=== PATIENT | female | born 1955 | race African-American/Black ===

== ENCOUNTER 2016-04-15 17:06 | Emergency (ER) | payer SELFPAY ==
[~2016-04-15] VITALS: Ht 170.2 cm; Wt 130.0 kg
[~2016-04-15 17:06] MED LIST: ALLO300T2 PO; AMLO5TAB96 PO; ASPI81TA11 PO; CORE12.5 PO; DIAZ5 PO; FURO1TAB93 PO; HYDR-2768 PO; KCL10C PO; MOTI25CH PO; PRED20 PO; RANI150 PO
[2016-04-15 17:08] VITALS: BP 144/93; PULSE 80; RESP 20; TEMP 98; O2SAT 96
== END 2016-04-15 21:05 | disposition left against medical advice (07) ==
LOC: NED 17:06
DX: Z53.21 Procedure and treatment not carried out due to patient leaving prior to being seen by health care provider (principal)
CPT/HCPCS: 99281

== ENCOUNTER 2016-08-11 20:02 | Observation (INO) | payer SELFPAY ==
[2016-08-11 20:03] VITALS: BP 141/80; PULSE 84; RESP 16; TEMP 98.6; O2SAT 97
--- NOTE | 2016-08-11 20:39 | PD ---
Physical Exam Time Seen by Provider: 20:36 Narrative 60 y/o female presents for evaluation of fluctuating blood pressure readings, dizziness, left sided chest/shoulder pain for over a week. Vital signs reviewed. Seen at triage desk. Awaiting bed placement. Data Data Last Documented VS Vital Signs Date Time Temp Pulse Resp B/P Pulse Ox O2 Delivery O2 Flow Rate FiO2 08/11/16 20:03 98.6 84 16 141/80 97 Room Air [facility] Medical Record Reviewed: Yes Supervised Visit with GILDA: Cesar Becerra August 11, 2016 20:39
[2016-08-11] MEDS ORDERED: SODIUM CHLORIDE 0.9% FLUSH 10 ML FLUSH IVF PRN (21:00)
[2016-08-11] MEDS ORDERED: ASPIRIN 81 MG CHEW TAB PO ONE (21:00)
--- NOTE | 2016-08-11 21:03 | PD ---
HPI Chief Complaint: Hypertension Time Seen by Provider: 20:51 Travel History International Travel<30 days: No Contact w/Intl Traveler<30days: No Traveled to known affect area: No History of Present Illness HPI 60-year-old female with history of hypertension, CHF, here for evaluation of elevated blood pressure and chest discomfort. The patient reports that for the last week or so she has been having elevated blood pressure readings at home with her diastolic being over 100. She is also been having a discomfort in her left chest that is been intermittent, no modifying factors. She reports history of heart murmur, however is unaware of any history of coronary artery disease. She also endorses feeling short of breath at times, currently no shortness of breath. PFSH Past Medical History Arthritis: Yes (SHOULDER AND KNEE) Asthma: Yes Blood Disorders: No Cancer: No Cardiovascular Problems: Yes (chf) High Cholesterol: Yes Congestive Heart Failure: Yes COPD: No Diabetes: Yes Diminished Hearing: No Headaches: Yes Hiatal Hernia: No Hypertension: Yes Musculoskeletal: Yes Psychiatric: No Respiratory: Yes Renal Failure: Yes Ulcer: No Menopausal: Yes : 4 Para: 3 Miscarriage: 1 Tubal Ligation: Yes Past Surgical History Abdominal Surgery: Yes (HERNIA REPAIR X 2) Genitourinary Surgery: Yes (BLADDER SUSPENSION) Gynecologic Surgery: Yes Hysterectomy: Yes Joint Replacement: No Neurologic Surgery: No Pacemaker: No Tonsillectomy: Yes Other Surgery: Yes (OVARIAN MASS REMOVED) Family History Family Hypercholesterolemia: Yes Social History Alcohol Use: No Tobacco Use: No (quit 10 year ago) Substance Use: No Allergies-Medications (Allergen,Severity, Reaction): Coded Allergies: YOSSI Inhibitors (Verified Allergy, Severe, LIP SWELLING, 08/11/16) Reported Meds & Prescriptions Reported Meds & Active Scripts Active Reported Omeprazole 20 Mg Tab 20 Mg PO DAILY Furosemide 40 Mg Tab 40 Mg PO FRI, SAT, AND SUN Carvedilol 12.5 Mg Tab 12.5 Mg PO DAILY Amlodipine (Amlodipine Besylate) 5 Mg Tab 5 Mg PO DAILY Potassium Chloride ER (Potassium Chloride) 20 Meq Tab 20 Meq PO DAILY Hydrochlorothiazide 25 Mg Tab 25 Mg PO DAILY Review of Systems Except as stated in HPI: all other systems reviewed are Neg Physical Exam Narrative GENERAL: Well-developed, well-nourished, overweight, comfortable, no acute distress. SKIN: Focused skin assessment warm/dry. HEAD: Atraumatic. Normocephalic. EYES: Pupils equal and round. No scleral icterus. No injection or drainage. ENT: Mucous membranes pink and moist. NECK: Trachea midline. No JVD. CARDIOVASCULAR: Regular rate and rhythm. Distal pulses brisk and equal bilaterally. RESPIRATORY: No accessory muscle use. Clear to auscultation. Breath sounds equal bilaterally. GASTROINTESTINAL: Abdomen soft, non-tender, nondistended. MUSCULOSKELETAL: No obvious deformities. No clubbing. No cyanosis. Mild bilateral lower extremity edema. NEUROLOGICAL: Awake and alert. No obvious cranial nerve deficits. Motor grossly within normal limits. Normal speech. PSYCHIATRIC: Appropriate mood and affect; insight and judgment normal. Data Data Last Documented VS Vital Signs Date Time Temp Pulse Resp B/P Pulse Ox O2 Delivery O2 Flow Rate FiO2 08/11/16 22:02 68 18 161/87 99 Room Air 08/11/16 21:07 98.1 Orders Electrocardiogram (08/11/16 20:59) Basic Metabolic Panel (Bmp) (08/11/16 20:59) Ckmb (Isoenzyme) Profile (08/11/16 20:59) Complete Blood Count With Diff (08/11/16 20:59) Magnesium (Mg) (08/11/16 20:59) Prothrombin Time / Inr (Pt) (08/11/16 20:59) Act Partial Throm Time (Ptt) (08/11/16 20:59) Troponin I (08/11/16 20:59) Chest, Single Ap (08/11/16 20:59) Ecg Monitoring (08/11/16 20:59) Bilateral Bp Monitoring (08/11/16 20:59) Iv Access Insert/Monitor (08/11/16 20:59) Oximetry (08/11/16 20:59) Aspirin Chew (Aspirin Chew) (08/11/16 21:00) Sodium Chloride 0.9% Flush (Ns Flush) (08/11/16 21:00) CKMB (08/11/16 21:15) CKMB% (08/11/16 21:15) Labs Laboratory Tests Test 08/11/16 21:15 White Blood Count 6.1 TH/MM3 Red Blood Count 4.19 MIL/MM3 Hemoglobin 12.9 GM/DL Hematocrit 39.0 % Mean Corpuscular Volume 93.2 FL Mean Corpuscular Hemoglobin 30.9 PG Mean Corpuscular Hemoglobin 33.1 % Concent Red Cell Distribution Width 13.1 % Platelet Count 211 TH/MM3 Mean Platelet Volume 9.3 FL Neutrophils (%) (Auto) 51.0 % Lymphocytes (%) (Auto) 40.1 % Monocytes (%) (Auto) 6.4 % Eosinophils (%) (Auto) 1.6 % Basophils (%) (Auto) 0.9 % Neutrophils # (Auto) 3.1 TH/MM3 Lymphocytes # (Auto) 2.4 TH/MM3 Monocytes # (Auto) 0.4 TH/MM3 Eosinophils # (Auto) 0.1 TH/MM3 Basophils # (Auto) 0.1 TH/MM3 CBC Comment DIFF FINAL Differential Comment Prothrombin Time 10.0 SEC Prothromb Time International 0.9 RATIO Ratio Activated Partial 24.1 SEC Thromboplast Time Sodium Level 141 MEQ/L Potassium Level 3.7 MEQ/L Chloride Level 104 MEQ/L Carbon Dioxide Level 27.9 MEQ/L Anion Gap 9 MEQ/L Blood Urea Nitrogen 13 MG/DL Creatinine 0.82 MG/DL Estimat Glomerular Filtration 85 ML/MIN Rate Random Glucose 101 MG/DL Calcium Level 8.7 MG/DL Magnesium Level 2.1 MG/DL Total Creatine Kinase 242 U/L Creatine Kinase MB 5.9 NG/ML Creatine Kinase MB % 2.4 % Troponin I 0.03 NG/ML [facility] Medical Decision Making Medical Screen Exam Complete: Yes Emergency Medical Condition: Yes Medical Record Reviewed: Yes Interpretation(s) EKG: Sinus, rate 66, leftward axis, normal intervals, no acute ischemic abnormality. Differential Diagnosis Hypertension, ACS, pneumothorax, pericarditis, PE, pneumonia, musculoskeletal chest pain Narrative Course Vital signs reviewed. CBC is unremarkable. BMP is unremarkable. Troponin is 0.03. Chest x-ray shows cardiomegaly. Patient was made aware of all findings. Given significant risk factors for cardiac disease, the patient will be admitted for overnight observation to the chest pain center. She is amenable to this plan. Diagnosis Primary Impression: Chest pain Qualified Code: R07.9 - Chest pain, unspecified type Admitting Information Admitting Physician Requests: Observation Romain Hill MD August 11, 2016 21:03
[2016-08-11 21:07] VITALS: BP 155/82; PULSE 66; PULSE 70; RESP 18; TEMP 98.1; O2SAT 98; O2SAT 99
[2016-08-11 21:28] LABS: AUTOMATED NEUTROPHIL # 3.1 TH/MM3 (1.8-7.7); BASOPHIL # 0.1 TH/MM3 (0-0.2); BASOPHIL % 0.9 % (0.0-2.0); EOSINOPHIL # 0.1 TH/MM3 (0-0.4); EOSINOPHIL % 1.6 % (0.0-4.0); HEMO FLAGS DIFF FINAL; LYMPH % 40.1 % (9.0-44.0); LYMPHOCYTE # 2.4 TH/MM3 (1.0-4.8); MEAN CELL VOLUME 93.2 FL (80.0-100.0); MEAN CORPUSCULAR HEMOGLOBIN 30.9 PG (27.0-34.0); MEAN CORPUSCULAR HGB CONC 33.1 % (32.0-36.0); MONO % 6.4 % (0.0-8.0); PLATELET COUNT 211 TH/MM3 (150-450); RED BLOOD COUNT 4.19 MIL/MM3 (4.00-5.30); RED CELL DISTRIBUTION WIDTH 13.1 % (11.6-17.2); WHITE BLOOD COUNT 6.1 TH/MM3 (4.0-11.0)
[2016-08-11 21:43] LABS: INTERNATIONAL NORMALIZED RATIO 0.9 RATIO
[2016-08-11 21:45] LABS: APTT (PATIENT) 24.1 SEC (24.3-30.1)
[2016-08-11 21:54] LABS: BICARBONATE 27.9 MEQ/L (21.0-32.0); MAGNESIUM 2.1 MG/DL (1.5-2.5); POTASSIUM 3.7 MEQ/L (3.5-5.1)
[2016-08-11 22:02] VITALS: BP 161/87; PULSE 68; RESP 18; O2SAT 99
[2016-08-11 22:07] LABS: CKMB 5.9 NG/ML (0.5-3.6)
--- NOTE | 2016-08-11 22:07 | RADRPT ---
EXAM DATE/TIME: 08/11/2016 21:20 [facility] COMPARISON: CHEST SINGLE AP, June 26, 2015, 22:27. INDICATIONS : Chest pain. MEDICAL HISTORY : Hypertension. Diabetes mellitus type II. SURGICAL HISTORY : None. ENCOUNTER: Initial ACUITY: 3 days PAIN SCORE: 5/10 LOCATION: Bilateral chest FINDINGS: A single view of the chest demonstrates the lungs to be symmetrically aerated without evidence of mas s, infiltrate or effusion. The heart size is enlarged. Osseous structures are intact. CONCLUSION: Cardiomegaly. August Hardy MD on August 11, 2016 at 22:05 Board Certified Radiologist. This report was verified electronically.
[2016-08-11] MEDS ORDERED: HYDR25TA5 PO (22:08)
[2016-08-11] MEDS ORDERED: POTA-163 PO (22:08)
[2016-08-11] MEDS ORDERED: OMEP20TA PO (22:08)
[2016-08-11] MEDS ORDERED: CARV12.52 PO (22:08)
[2016-08-11] MEDS ORDERED: AMLO5TAB2 PO (22:08)
[2016-08-11] MEDS ORDERED: FURO40TA PO (22:08)
[2016-08-11 22:36] VITALS: O2SAT 96
[2016-08-11 23:15] VITALS: BP 133/79; PULSE 68; RESP 18; TEMP 98.1; O2SAT 98
[2016-08-11 23:47] VITALS: BP 130/67; PULSE 72; RESP 18; TEMP 98.2; O2SAT 99
[2016-08-12 01:14] LABS: CKMB 4.9 NG/ML (0.5-3.6)
[2016-08-12 03:40] VITALS: BP 138/67; PULSE 71; RESP 18; TEMP 98.1; O2SAT 95
[2016-08-12 04:03] VITALS: PULSE 66
[2016-08-12 04:14] LABS: CREATINE KINASE 181 U/L (26-192)
[2016-08-12 04:26] LABS: CKMB 4.3 NG/ML (0.5-3.6)
[2016-08-12 07:40] VITALS: PULSE 64
[2016-08-12 08:31] VITALS: BP 150/66; PULSE 67; RESP 19; TEMP 98; O2SAT 97
--- NOTE | 2016-08-12 08:34 | HHI.HP ---
[facility] Chest pain History of Present Illness 60-year-old female with known hypertension, hyperlipidemia, and diabetes presents to emergency room for further evaluation chest discomfort and multiple complaint. States over the past week she has had elevated blood pressure. Blood pressure has ranged SBP 170s and DBP high 90s and low 100s. She has an appointment scheduled for 08/[address] Dobson for follow-up on her blood pressure. 3 days ago she developed "frequent indigestion." Also noticed left anterior chest and left shoulder discomfort she relates to her torn rotator cuff. Pain has been constant, hurts to touch area. No associated symptoms. No known precipitating or relieving factors. She has never had formal cardiac testing. Due to her multiple complaints she became worried therefore came to the ER "to be checked out." Review of Systems General: No fatigue,weakness, fever, chills, or recent illness HEENT: No LO, no vision changes, no nasal congestion or drainage CV: As stated above. Continues to have constant dull left shoulder, left neck left anterior chest pain. No palpitations, intermittent leg pain. Chronic intermittent dizziness, states " I have a medication I take when dizziness is severe." RESP: No SOB, cough, wheeze, or recent URI. History of Asthma. GI: No nausea, vomiting, obese, bowel changes, diarrhea, constipation, pain, distention, melena, blood in the stool. No change in appetite. : No dysuria, urgency, frequency EXT: No lower leg edema, right leg neuropathy, states causes unknown. MS: No discomfort or change in ROM NEURO: No change in memory, dizziness, difficulty with balance, LOC, motor/ sensory deficits PSYCH: No anxiety or depression SKIN: No rashes, no concerning lesions Past Family Social History Allergies: Coded Allergies: YOSSI Inhibitors (Verified Allergy, Severe, LIP SWELLING, 08/11/16) Past Medical History Hypertension, congestive heart failure, asthma, GERD, diabetes (has been off metformin for years), hyperlipidemia (has been off meds for about one year due to cramping-states PCP has encouraged her to restart) Past Surgical History Cholecystectomy, hernia repair 2, total hysterectomy Reported Medications Reported Meds & Active Scripts Active Reported Omeprazole 20 Mg Tab 20 Mg PO DAILY Furosemide 40 Mg Tab 40 Mg PO FRI, SAT, AND SUN Carvedilol 12.5 Mg Tab 12.5 Mg PO DAILY Amlodipine (Amlodipine Besylate) 5 Mg Tab 5 Mg PO DAILY Potassium Chloride ER (Potassium Chloride) 20 Meq Tab 20 Meq PO DAILY Hydrochlorothiazide 25 Mg Tab 25 Mg PO DAILY Active Ordered Medications Current Medications Medications (Trade) Dose Ordered Sig/Prieto Route Start Time Stop Time Status Last Admin (NS Flush) 2 ml UNSCH PRN IVF 08/11/16 21:00 Family History Neck her to be 18 for early onset cardiovascular disease. Mother had "heart problems" no blockages, father of stroke. No siblings with early onset cardiovascular disease. Social History Known hypertension, diabetes, and hyperlipidemia. Taking medication for hypertension only at this time. Quit smoking cigarettes 15 years ago. Prior to quitting smoking half a pack cigarettes daily for most of her.light. Drinks alcohol occasionally. Denies any illegal drug use. Past cardiac testing No formal cardiac testing. No past cardiac catheterization. Physical Exam Vital Signs Vital Signs Date Time Temp Pulse Resp B/P Pulse Ox O2 Delivery O2 Flow Rate FiO2 08/12/16 08:31 98.0 67 19 150/66 97 08/12/16 04:03 66 08/12/16 03:40 98.1 71 18 138/67 95 08/11/16 23:47 98.2 72 18 130/67 99 08/11/16 23:15 98.1 68 18 133/79 98 Room Air 08/11/16 22:36 96 21 08/11/16 22:02 68 18 161/87 99 Room Air 08/11/16 21:07 66 18 155/82 98 Room Air 08/11/16 21:07 99 Room Air 08/11/16 21:07 98.1 70 18 155/82 98 Room Air 08/11/16 21:07 67 18 98 Room Air 08/11/16 20:03 98.6 84 16 141/80 97 Room Air Physical Exam GENERAL: Alert WN, WD, NAD, pleasant, obese, female HEAD: NC, AT EYES: Sclera clear, conjunctiva without injection, pupils equal and round NECK: Supple, no masses, trachea midline CV: RRR, without murmur, rub, gallop, no JVD, S1-S2 no S3-S4. RESP: Clear lungs throughout bilateral, no crackles, wheeze, rhonchi, symmetrical chest rise, nonlabored, able to speak in full sentences ABD: Soft, NT, ND, obese, no masses, positive bowel tones EXT: Pulses +24, trace dependent edema MS: Normal tone 4 extremities, nontender, no obvious deformities, full range of motion NEURO: CN II through CN XII grossly intact, motor strength 5/5, gait WNL PSYCH: A+O 3, pleasant affect, appropriate speech, appropriate mood and affect , insight and judgment SKIN: Normal turgor, normal texture, no lesions, no rashes Laboratory Laboratory Tests Test 08/11/16 08/12/16 08/12/16 21:15 00:15 03:15 White Blood Count 6.1 Red Blood Count 4.19 Hemoglobin 12.9 Hematocrit 39.0 Mean Corpuscular Volume 93.2 Mean Corpuscular Hemoglobin 30.9 Mean Corpuscular Hemoglobin 33.1 Concent Red Cell Distribution Width 13.1 Platelet Count 211 Mean Platelet Volume 9.3 Neutrophils (%) (Auto) 51.0 Lymphocytes (%) (Auto) 40.1 Monocytes (%) (Auto) 6.4 Eosinophils (%) (Auto) 1.6 Basophils (%) (Auto) 0.9 Neutrophils # (Auto) 3.1 Lymphocytes # (Auto) 2.4 Monocytes # (Auto) 0.4 Eosinophils # (Auto) 0.1 Basophils # (Auto) 0.1 CBC Comment DIFF FINAL Differential Comment Prothrombin Time 10.0 Prothromb Time International 0.9 Ratio Activated Partial 24.1 Thromboplast Time Sodium Level 141 Potassium Level 3.7 Chloride Level 104 Carbon Dioxide Level 27.9 Anion Gap 9 Blood Urea Nitrogen 13 Creatinine 0.82 Estimat Glomerular Filtration 85 Rate Random Glucose 101 Calcium Level 8.7 Magnesium Level 2.1 Total Creatine Kinase 242 216 181 Creatine Kinase MB 5.9 4.9 4.3 Creatine Kinase MB % 2.4 2.3 Troponin I 0.03 0.03 0.03 Result Diagram: 08/11/16211408/11/162114 Imaging Last Impressions Chest X-Ray 08/11/162058 Signed Impressions: Service Date/Time: Thursday, August 11, 2016 21:20 - CONCLUSION: Cardiomegaly. August Hardy MD Course EKGs Normal sinus rhythm, left axis deviation, no ST or T-segment changes Assessment and Plan Assessment and Plan #1 Chest painadmitted to chest pain center. Ruled out with 3 sets of EKGs and cardiac enzymes. Seen and evaluated by Dr. Jeferson Pham. Due to multiple risk factors we'll complete Cristal scan this a.m. is patient has chronic neuropathy of right leg. #2 Hypertensioncontinue amlodipine, carvedilol, hydrochlorothiazide, furosemide #3 GERDcontinue omeprazole #4 Diabetesfollow with PCP and complete blood work including hemoglobin A1c as previously ordered, keep PCP appointment on August 21. Discussed the importance of tight blood glucose control. #5 Hyperlipidemiacomplete lipid panel as previously ordered by PCP, follow up with PCP accordingly Kindra Cardenas August 12, 2016 08:34
[2016-08-12] MEDS ORDERED: NITROGLYCERIN 0.4 MG SL 25 TABS/BTL SL PRN (08:45)
[2016-08-12] MEDS ORDERED: ONDANSETRON HCL 4 MG/2 ML VIAL IV PRN (08:45)
[2016-08-12] MEDS ORDERED: ACETAMINOPHEN 500 MG CPLT PO PRN (08:45)
[2016-08-12] MEDS ORDERED: ASPIRIN 325 MG TAB PO SCH (09:00)
[2016-08-12] MEDS ORDERED: REGADENOSON INJ 0.4 MG/5 ML SYR ONE (10:57)
[2016-08-12] MEDS ORDERED: CARVEDILOL 12.5 MG TAB PO SCH (11:00)
[2016-08-12] MEDS ORDERED: PANTOPRAZOLE SOD 20 MG DELAYED RELEASE TAB PO SCH (11:00)
[2016-08-12] MEDS ORDERED: HYDROCHLOROTHIAZIDE 25 MG TAB PO SCH (11:00)
[2016-08-12] MEDS ORDERED: amLODIPine BESYLATE 5 MG TAB PO SCH (11:00)
[2016-08-12] MEDS ORDERED: POTASSIUM CHLORIDE 20 MEQ CONTROLLED RELEASE TAB PO SCH (11:00)
[2016-08-12 12:11] VITALS: BP 156/82; PULSE 70; RESP 19; TEMP 98.2; O2SAT 99
--- NOTE | 2016-08-12 12:46 | RADRPT ---
EXAM DATE/TIME: 08/12/2016 09:49 [facility] COMPARISON: No previous studies available for comparison. INDICATIONS : Left sided chest pain radiating to left shoulder. Angina. DOSE: 35 mCi Tc99m Myoview at stress. 11 mCi Tc99m Myoview at rest. 0.4 mg Lexiscan STRESS SYMPTOMS: Headache. EJECTION FRACTION: 68% MEDICAL HISTORY : Hypertension. Diabetes mellitus type 2. SURGICAL HISTORY : Hysterectomy. Tonsillectomy. Cholecystectomy. ENCOUNTER: Initial ACUITY: 1 day PAIN SCALE: 7/10 LOCATION: Left chest TECHNIQUE: The patient underwent pharmacologic stress with infusion of prescribed dose. Continuous ECG tracing was monitored during stress. Gated SPECT imaging was performed after stress and conventional SPECT i maging was performed at rest. The examination was performed on a SPECT/CT scanner, both attenuation and non-corrected datasets were reviewed. FINDINGS: DISTRIBUTION: The maximum perfused segment at stress is in the anterior wall. PERFUSION STUDY: The pattern of perfusion at stress is within normal limits. GATED STUDY: There is intact wall motion and thickening without hypokinetic or dyskinetic segments. CONCLUSION: Normal examination. RISK CATEGORY: Low (<1% Annual Mortality Rate) August Guy MD on August 12, 2016 at 12:42 Board Certified Radiologist. This report was verified electronically.
[2016-08-12] MEDS ORDERED: KETOROLAC TROMETHAMINE 30 MG/ML (IVP) VIAL IV PUSH ONE (13:00)
[2016-08-12] MEDS ORDERED: IBUP-232 PO (13:13)
--- NOTE | 2016-08-12 13:14 | HHI.DCPOC ---
Discharge Care Plan Diagnosis: (1) Musculoskeletal chest pain (2) Hypertension Goals to Promote Your Health * To prevent worsening of your condition and complications * To maintain your health at the optimal level Directions to Meet Your Goals Take your medications as prescribed Follow your dietary instruction Follow activity as directed Keep your appointments as scheduled Take your immunizations and boosters as scheduled If your symptoms worsen call your PCP, if no PCP go to Urgent Care Center or Emergency Room Smoking is Dangerous to Your Health. Avoid second hand smoke Call the 24-hour hour crisis hotline for domestic abuse at Kindra Cardenas August 12, 2016 13:14
--- NOTE | 2016-08-13 10:52 | TR ---
Date Performed: 08/12/2016 Time Performed: 10:39:20 DOCTOR: Beltran Angelo DRUG LIST: CLINICAL HISTORY: CHEST PAIN REASON FOR TEST: REASON FOR ENDING: OBSERVATION: CONCLUSION: Lexiscan stress test was performed under standard four minute protocol. Radionuclid e was injected one minute prior to ending the test. No electrocardiographic abormalities were present to suggest ischemia. Nuclear imaging and interpretation are pending. COMMENTS:
--- NOTE | 2016-08-13 11:03 | EKG ---
Date Performed: 08/12/2016 Time Performed: 03:37:05 PTAGE: 60 years EKG: Sinus rhythm NORMAL ECG PREVIOUS TRACING : 08/12/2016 00.50 Since previous tracing, no significant change noted DOCTOR: Beltran Angelo Interpretating Date/Time 08/13/2016 11:03:02
--- NOTE | 2016-08-13 11:05 | EKG ---
Date Performed: 08/12/2016 Time Performed: 00:50:38 PTAGE: 60 years EKG: Sinus rhythm Normal ECG PREVIOUS TRACING : 08/11/2016 21.10 Since previous tracing, no significant change noted DOCTOR: Beltran Angelo Interpretating Date/Time 08/13/2016 11:04:14
--- NOTE | 2016-08-13 11:08 | EKG ---
Date Performed: 08/11/2016 Time Performed: 21:10:28 PTAGE: 60 years EKG: Sinus rhythm MINIMAL VOLTAGE CRITERIA FOR LVH, CONSIDER NORMAL VARIANT BORDERLINE ECG PREVIOUS TRACING : 12/07/2015 02.22 Compared to previous tracing reversedlimb leads are correct ed DOCTOR: Beltran Angelo Interpretating Date/Time 08/13/2016 11:06:54
== END 2016-08-12 15:54 | disposition home or self-care (01) ==
LOC: NEPE 20:02 → NEDA 22:15 → NEPFCDU 23:19
PROVIDERS: ADMIT Internal Medicine Cardiovascular Disease; ATTEND Internal Medicine Cardiovascular Disease
DX: R07.9 Chest pain, unspecified (principal); R42 Dizziness and giddiness; I11.0 Hypertensive heart disease with heart failure; I50.9 Heart failure, unspecified; R01.1 Cardiac murmur, unspecified; E78.00 Pure hypercholesterolemia, unspecified; E11.9 Type 2 diabetes mellitus without complications; R51 Headache; N19 Unspecified kidney failure; K30 Functional dyspepsia; K21.9 Gastro-esophageal reflux disease without esophagitis; J45.909 Unspecified asthma, uncomplicated; E78.5 Hyperlipidemia, unspecified; G57.91 Unspecified mononeuropathy of right lower limb; Z79.4 Long term (current) use of insulin
CPT/HCPCS: 71010; 78452; 80048; 82550; 82552; 83735; 84484; 85025; 85610; 85730; 93005; 93017; 99285; A9502; G0378; J1885; J2785

== ENCOUNTER 2017-08-25 18:03 | Emergency (ER) | payer SELFPAY ==
[~2017-08-25] VITALS: Ht 167.6 cm; Wt 125.0 kg
[~2017-08-25 18:03] MED LIST changes: -ALLO300T2 PO; +AMLO5TAB2 PO; -AMLO5TAB96 PO; -ASPI81TA11 PO; +CARV12.52 PO; -CORE12.5 PO; -DIAZ5 PO; -FURO1TAB93 PO; +FURO40TA PO; -HYDR-2768 PO; +HYDR25TA5 PO; +IBUP-232 PO; -KCL10C PO; -MOTI25CH PO; +OMEP20TA93 PO; +POTA-163 PO; -PRED20 PO; -RANI150 PO
[2017-08-25 18:07] VITALS: BP 152/74; PULSE 72; RESP 18; TEMP 98.8; O2SAT 99
[2017-08-25] MEDS ORDERED: SODIUM CHLOR 0.9% 1000 ML INJ 1,000 ML IV SCH (18:22)
[2017-08-25] MEDS ORDERED: SODIUM CHLORIDE 0.9% FLUSH 10 ML FLUSH IV FLUSH PRN (18:30)
[2017-08-25] MEDS ORDERED: MORPHINE SULFATE 4 MG/ML INJ IV PUSH ONE (18:30)
--- NOTE | 2017-08-25 18:31 | PD ---
HPI Chief Complaint: Pain: Acute or Chronic Time Seen by Provider: 18:16 Travel History International Travel<30 days: No Contact w/Intl Traveler<30days: No Traveled to known affect area: No History of Present Illness HPI 61-year-old female here for evaluation of left flank/left lower back pain. Patient reports that the pain started 2 days ago and has been constant, 8 out of 10, described as a pressure, radiates down her left posterior leg, worse with movements. She denies urinary symptoms such as hematuria or dysuria. She has had several episodes of loose bowel movements since this pain started. Bowel movements are nonbloody. She has felt nauseous but no vomiting. No fevers. No trauma. PFSH Past Medical History Arthritis: Yes (SHOULDER AND KNEE) Asthma: Yes Blood Disorders: No Cancer: No Cardiac Catheterization: No Cardiovascular Problems: Yes (HTN, CHF) High Cholesterol: Yes Congestive Heart Failure: Yes COPD: No Diabetes: Yes Diminished Hearing: No Headaches: Yes Hiatal Hernia: No Hypertension: Yes Musculoskeletal: Yes Psychiatric: No Respiratory: Yes (ASTHMA) Renal Failure: Yes Ulcer: No ?: Not Menopausal: Yes : 4 Para: 3 Miscarriage: 1 Tubal Ligation: Yes Past Surgical History Abdominal Surgery: Yes (HERNIA REPAIR X 2) Coronary Artery Bypass Graft: No Genitourinary Surgery: Yes (BLADDER SUSPENSION) Gynecologic Surgery: Yes Hysterectomy: Yes Joint Replacement: No Neurologic Surgery: No Pacemaker: No Tonsillectomy: Yes Other Surgery: Yes (OVARIAN MASS REMOVED) Family History Family Hypercholesterolemia: Yes Social History Alcohol Use: No Tobacco Use: No (quit 10 year ago) Substance Use: No Allergies-Medications (Allergen,Severity, Reaction): Coded Allergies: benazepril (Unverified Allergy, Severe, LIP SWELLING, 08/25/17) captopril (Unverified Allergy, Severe, LIP SWELLING, 08/25/17) enalaprilat (Unverified Allergy, Severe, LIP SWELLING, 08/25/17) fosinopril (Unverified Allergy, Severe, LIP SWELLING, 08/25/17) lisinopril (Unverified Allergy, Severe, LIP SWELLING, 08/25/17) quinapril (Unverified Allergy, Severe, LIP SWELLING, 08/25/17) Reported Meds & Prescriptions Reported Meds & Active Scripts Active Ibuprofen 600 Mg Tab 600 Mg PO TID 3 Days Reported Ventolin Hfa 18 GM Inh (Albuterol Sulfate) 90 Mcg/Act Aer 2 Puff INH Q4-6H PRN Metformin (Metformin HCl) 500 Mg Tab 500 Mg PO DAILY With a meal Vytorin (Ezetimibe-Simvastatin) 10-40 Mg Tab 1 Tab PO WEEKLY Benicar (Olmesartan) 20 Mg Tab 20 Mg PO DAILY Omeprazole 20 Mg Tab 20 Mg PO DAILY Furosemide 40 Mg Tab 40 Mg PO FRI, SAT, AND SUN Carvedilol 12.5 Mg Tab 12.5 Mg PO DAILY Amlodipine (Amlodipine Besylate) 5 Mg Tab 5 Mg PO DAILY Potassium Chloride ER (Potassium Chloride) 20 Meq Tab 20 Meq PO DAILY Hydrochlorothiazide 25 Mg Tab 25 Mg PO DAILY Review of Systems Except as stated in HPI: all other systems reviewed are Neg Physical Exam Narrative GENERAL: Well-developed, well-nourished, overweight, no apparent distress. SKIN: Focused skin assessment warm/dry. No rash. HEAD: Atraumatic. Normocephalic. EYES: Pupils equal and round. No scleral icterus. No injection or drainage. ENT: No nasal bleeding or discharge. Mucous membranes pink and moist. NECK: Trachea midline. No JVD. CARDIOVASCULAR: Regular rate and rhythm. No murmur appreciated. RESPIRATORY: No accessory muscle use. Clear to auscultation. Breath sounds equal bilaterally. GASTROINTESTINAL: Abdomen soft, non-tender, nondistended. MUSCULOSKELETAL: No obvious deformities. No clubbing. No cyanosis. No edema. Moderate left SI joint tenderness, no midline vertebral step-off or tenderness. NEUROLOGICAL: Awake and alert. No obvious cranial nerve deficits. Motor grossly within normal limits. Normal speech. No saddle anesthesia. Brisk patellar tendon reflexes bilaterally. Great toe extension present bilaterally. Normal flexion and extension in bilateral lower extremities at the hip, knee, and ankle joints. PSYCHIATRIC: Appropriate mood and affect; insight and judgment normal. Data Data Last Documented VS Vital Signs Date Time Temp Pulse Resp B/P (MAP) Pulse Ox O2 Delivery O2 Flow Rate FiO2 08/25/17 19:17 70 15 134/95 (108) 99 Room Air 08/25/17 18:07 98.8 Orders Orders Complete Blood Count With Diff (08/25/17 18:22) Comprehensive Metabolic Panel (08/25/17 18:22) Prothrombin Time / Inr (Pt) (08/25/17 18:22) Act Partial Throm Time (Ptt) (08/25/17 18:22) Urinalysis - C+S If Indicated (08/25/17 18:22) Ct Abd/Pel W Iv Contrast(Rout) (08/25/17 18:22) Iv Access Insert/Monitor (08/25/17 18:22) Ecg Monitoring (08/25/17 18:22) Oximetry (08/25/17 18:22) Sodium Chlor 0.9% 1000 Ml Inj (Ns 1000 M (08/25/17 18:22) Sodium Chloride 0.9% Flush (Ns Flush) (08/25/17 18:30) Ct Lumb Spine W/O Contrast (08/25/17 ) Morphine Inj (Morphine Inj) (08/25/17 18:30) Al-Mag Hy-Si 40-40-4 Mg/Ml Liq (Mag-Al P (08/25/17 20:45) Lidocaine 2% Viscous (Xylocaine 2% Visco (08/25/17 20:45) Iohexol 350 Inj (Omnipaque 350 Inj) (08/25/17 20:34) Labs Laboratory Tests Test 08/25/17 19:15 White Blood Count 5.6 TH/MM3 Red Blood Count 4.39 MIL/MM3 Hemoglobin 13.7 GM/DL Hematocrit 41.0 % Mean Corpuscular Volume 93.4 FL Mean Corpuscular Hemoglobin 31.2 PG Mean Corpuscular Hemoglobin Concent 33.4 % Red Cell Distribution Width 13.1 % Platelet Count 235 TH/MM3 Mean Platelet Volume 9.1 FL Neutrophils (%) (Auto) 48.3 % Lymphocytes (%) (Auto) 43.8 % Monocytes (%) (Auto) 6.3 % Eosinophils (%) (Auto) 1.1 % Basophils (%) (Auto) 0.5 % Neutrophils # (Auto) 2.7 TH/MM3 Lymphocytes # (Auto) 2.4 TH/MM3 Monocytes # (Auto) 0.3 TH/MM3 Eosinophils # (Auto) 0.1 TH/MM3 Basophils # (Auto) 0.0 TH/MM3 CBC Comment DIFF FINAL Differential Comment Prothrombin Time 9.8 SEC Prothromb Time International Ratio 1.0 RATIO Activated Partial Thromboplast Time 23.4 SEC Urine Color LIGHT-YELLOW Urine Turbidity CLEAR Urine pH 5.0 Urine Specific [place] 1.015 Urine Protein NEG mg/dL Urine Glucose (UA) NEG mg/dL Urine Ketones NEG mg/dL Urine Occult Blood NEG Urine Nitrite NEG Urine Bilirubin NEG Urine Urobilinogen LESS THAN 2.0 MG/DL Urine Leukocyte Esterase NEG Urine WBC 2 /hpf Microscopic Urinalysis Comment CULT NOT INDICATED Blood Urea Nitrogen 14 MG/DL Creatinine 0.89 MG/DL Random Glucose 100 MG/DL Total Protein 8.2 GM/DL Albumin 3.5 GM/DL Calcium Level 8.7 MG/DL Alkaline Phosphatase 75 U/L Aspartate Amino Transf (AST/SGOT) 13 U/L Alanine Aminotransferase (ALT/SGPT) 32 U/L Total Bilirubin 0.2 MG/DL Sodium Level 142 MEQ/L Potassium Level 3.9 MEQ/L Chloride Level 108 MEQ/L Carbon Dioxide Level 28.1 MEQ/L Anion Gap 6 MEQ/L Estimat Glomerular Filtration Rate 78 ML/MIN MDM Medical Decision Making Medical Screen Exam Complete: Yes Emergency Medical Condition: Yes Medical Record Reviewed: Yes Differential Diagnosis Sciatica, lumbosacral strain, nephrolithiasis, pyelonephritis, diverticulitis, colitis, cord compression unlikely Narrative Course Vital signs reviewed. CBC is unremarkable. CMP is unremarkable. UA is within normal limits, not suggestive of UTI. CT abdomen pelvis: CONCLUSION: 1. No acute abnormality seen. 2. Persistent midline hernia at the umbilicus containing only mesenteric fat. 3. Colonic diverticula without inflammatory change. CT lumbar spine: CONCLUSION: 1. No acute bony abnormalities seen. 2. Mild left disc protrusion at the L2-L3 level without significant stenosis. 3. Lower lumbar facet hypertrophy. 4. Disc bulge and osteophytic ridging at the T12-L1 level. Patient was made aware of all findings. She is resting comfortably. She feels somewhat improved after receiving morphine, however this caused some indigestion which was somewhat improved with a GI cocktail. She has no urinary or bowel incontinence or retention. No saddle anesthesia. No red flags for low back pain. This is likely sciatica. She was provided a copy of her CT abdomen pelvis and CT lumbar spine reports. She has ibuprofen at home. I will discharge her home with a prescription for a 5 day course of prednisone as well as Flexeril. She is stable for discharge home with outpatient follow-up with her primary care physician this week. She was advised on when to return to the emergency department. She verbalizes understanding and agreement with plan. Diagnosis Primary Impression: Low back pain Qualified Codes: M54.42 - Lumbago with sciatica, left side Referrals: Primary Care Physician 3 days Additional Instructions: Follow-up with your primary care physician this week. Return to the emergency department for worsening symptoms or any other concerns. Scripts Cyclobenzaprine (Flexeril) 10 Mg Tab 10 MG PO TID for Muscle Spasm, #15 TAB 0 Refills Prov: Romain Hill MD 08/25/17 Prednisone (Prednisone) 50 Mg Tab 50 MG PO DAILY for 4 Days, #4 TAB 0 Refills Prov: Romain Hill MD 08/25/17 Disposition: 01 DISCHARGE HOME Condition: Stable Romain Hill MD August 25, 2017 18:31
[2017-08-25] MEDS ORDERED: VYTO10TA9 PO (18:32)
[2017-08-25] MEDS ORDERED: VENTAER INH (18:32)
[2017-08-25] MEDS ORDERED: OLME1TAB PO (18:32)
[2017-08-25] MEDS ORDERED: METF500T PO (18:32)
[2017-08-25 19:17] VITALS: BP 134/95; PULSE 70; RESP 15; O2SAT 99
[2017-08-25 19:32] LABS: AUTOMATED NEUTROPHIL # 2.7 TH/MM3 (1.8-7.7); BASOPHIL % 0.5 % (0.0-2.0); EOSINOPHIL # 0.1 TH/MM3 (0-0.4); EOSINOPHIL % 1.1 % (0.0-4.0); HEMOGLOBIN 13.7 GM/DL (11.6-15.3); LYMPH % 43.8 % (9.0-44.0); LYMPHOCYTE # 2.4 TH/MM3 (1.0-4.8); MEAN CELL VOLUME 93.4 FL (80.0-100.0); MEAN CORPUSCULAR HEMOGLOBIN 31.2 PG (27.0-34.0); MEAN CORPUSCULAR HGB CONC 33.4 % (32.0-36.0); MEAN PLATELET VOLUME 9.1 FL (7.0-11.0); MONO % 6.3 % (0.0-8.0); MONOCYTE # 0.3 TH/MM3 (0-0.9); NEUT % 48.3 % (16.0-70.0); PLATELET COUNT 235 TH/MM3 (150-450); RED BLOOD COUNT 4.39 MIL/MM3 (4.00-5.30); RED CELL DISTRIBUTION WIDTH 13.1 % (11.6-17.2); WHITE BLOOD COUNT 5.6 TH/MM3 (4.0-11.0)
[2017-08-25 19:35] LABS: BILIRUBIN, URINE NEG (NEG); BLOOD, URINE NEG (NEG); GLUCOSE,URINE NEG (NEG); KETONE, URINE NEG (NEG); NITRITE,URINE NEG (NEG); URINE COLOR LIGHT-YELLOW (YELLW/STRAW); URINE LEUKOCYTE ESTERASE NEG (NEG)
[2017-08-25 19:42] LABS: PROTHROMBIN TIME - PATIENT 9.8 SEC (9.8-11.6)
[2017-08-25 20:05] LABS: ALBUMIN 3.5 GM/DL (3.4-5.0); ALT (GPT) 32 U/L (10-53); AST (GOT) 13 U/L (15-37); BICARBONATE 28.1 MEQ/L (21.0-32.0); CALCIUM 8.7 MG/DL (8.5-10.1); CREATININE 0.89 MG/DL (0.50-1.00); GLOMERULAR FILTRATION RATE 78 ML/MIN (>89); GLUCOSE,RANDOM 100 MG/DL (74-106)
[2017-08-25 20:28] LABS: ALKALINE PHOSPHATASE 75 U/L (45-117); BLOOD UREA NITROGEN 14 MG/DL (7-18); CHLORIDE 108 MEQ/L (98-107); SODIUM (NA) 142 MEQ/L (136-145); TOTAL BILIRUBIN ADULT 0.2 MG/DL (0.2-1.0); TOTAL PROTEIN 8.2 GM/DL (6.4-8.2)
[2017-08-25] MEDS ORDERED: IOHEXOL 350 MG/ML 10 ML VIAL (for RAD DIAG) IVCONTRAST ONE (20:34)
[2017-08-25] MEDS ORDERED: LIDOCAINE VISCOUS 2% SOLN 15 ML UDC PO ONE (20:45)
[2017-08-25] MEDS ORDERED: ALUMINUM/MAGNESIUM/SIMETH 30 ML CUP PO ONE (20:45)
--- NOTE | 2017-08-25 20:57 | RADRPT ---
EXAM DATE/TIME: 08/25/2017 20:22 [facility] COMPARISON: CT ABDOMEN & PELVIS W CONTRAST, January 22, 2012, 6:40. INDICATIONS : Abdominal pain IV CONTRAST: 95 cc Omnipaque 350 (iohexol) IV ORAL CONTRAST: No oral contrast ingested. RADIATION DOSE: 30.95 CTDIvol (mGy) MEDICAL HISTORY : Hypertension. Cardiovascular disease Diabetes, asthma SURGICAL HISTORY : Tubal ligation. Hysterectomy.Cholecystectomy.Appendectomy ENCOUNTER: Initial ACUITY: 2 days PAIN SCALE: 8/10 LOCATION: Bilateral lower quadrant TECHNIQUE: Volumetric scanning of the abdomen and pelvis was performed. Using automated exposure control and ad justment of the mA and/or kV according to patient size, radiation dose was kept as low as reasonably achievable to obtain optimal diagnostic quality images. DICOM format image data is available electro nically for review and comparison. FINDINGS: LOWER LUNGS: The visualized lower lungs are clear. LIVER: Homogeneous density without lesion. There is no dilation of the biliary tree. The patient is status post cholecystectomy. SPLEEN: Normal size without lesion. PANCREAS: Within normal limits. KIDNEYS: Normal in size and shape. There is no mass, stone or hydronephrosis. ADRENAL GLANDS: Within normal limits. VASCULAR: There is no aortic aneurysm. BOWEL/MESENTERY: Colonic diverticula are present without significant inflammatory change. The appendix appears normal. ABDOMINAL WALL: There is a midline hernia containing only mesenteric fat with the defect measuring up to 4 cm of the anterior abdominal wall. This is unchanged. RETROPERITONEUM: There is no lymphadenopathy. There is calcification in the right retroperitoneum anterior to the psoa s muscle which appears be related to the right ovarian vein. A ureteral stone is not seen. BLADDER: No wall thickening or mass. REPRODUCTIVE: The patient is status post hysterectomy. INGUINAL: There is no lymphadenopathy or hernia. MUSCULOSKELETAL: There is degenerative change in the lumbar spine. CONCLUSION: 1. No acute abnormality seen. 2. Persistent midline hernia at the umbilicus containing only mesenteric fat. 3. Colonic diverticula without inflammatory change. August Hardy MD on August 25, 2017 at 20:49 Board Certified Radiologist. This report was verified electronically.
--- NOTE | 2017-08-25 21:15 | RADRPT ---
EXAM DATE/TIME: 08/25/2017 20:22 [facility] COMPARISON: No previous studies available for comparison. INDICATIONS : Lower back pain, no known injury. RADIATION DOSE: ; Reconstructed from previous dataset, no dose MEDICAL HISTORY : Hypertension. Cardiovascular disease Diabetes. SURGICAL HISTORY : Tubal ligation. Appendectomy.Cholecystectomy.Hysterectomy. ENCOUNTER: Initial ACUITY: 1 day PAIN SCALE: 9/10 LOCATION: Paraspinal TECHNIQUE: Volumetric scanning of the lumbar spine was performed. Multiplanar reconstructions in the sagittal, coronal and oblique axial planes were performed. Using automated exposure control and adjustment of the mA and/or kV according to patient size, radiation dose was kept as low as reasonably achievable t o obtain optimal diagnostic quality images. DICOM format image data is available electronically for review and comparison. FINDINGS: VERTEBRAE: The last normal-sized disc is labeled L5-S1. There is rudimentary disc at the S1-S2 level and some l umbarization of the S1 level which is a normal transitional variant. The vertebral bodies are normal in height. ALIGNMENT: No evidence of subluxation. T12-L1: The disc demonstrates decreased height. There is mild diffuse disc bulge and osteophytic ridging pres ent. Significant stenosis is not seen. The thecal sac has a normal diameter. The neural foramina are patent bilaterally. L1-L2: The thecal sac has a normal diameter. There is calcification at the posterior disc margin without a significant impression on the thecal sac. No evidence of disc bulge or protrusion. The neural forami na are patent bilaterally. L2-L3: There is a mild left paracentral to lateral recess disc protrusion without significant stenosis. The neural foramina are patent bilaterally. L3-L4: The thecal sac has a normal diameter. No evidence of disc bulge or protrusion. The neural foramina are patent bilaterally. L4-L5: The thecal sac has a normal diameter. No evidence of disc bulge or protrusion. The neural foramina are patent bilaterally. There is moderate facet hypertrophy. L5-S1: The thecal sac has a normal diameter. No evidence of disc bulge or protrusion. The neural foramina are patent bilaterally. There is moderate facet hypertrophy. CONCLUSION: 1. No acute bony abnormalities seen. 2. Mild left disc protrusion at the L2-L3 level without significant stenosis. 3. Lower lumbar facet hypertrophy. 4. Disc bulge and osteophytic ridging at the T12-L1 level. August Hardy MD on August 25, 2017 at 21:06 Board Certified Radiologist. This report was verified electronically.
[2017-08-25] MEDS ORDERED: CYCL10TA PO (21:22)
[2017-08-25] MEDS ORDERED: PRED50 PO (21:22)
[2017-08-25] MEDS ORDERED: KETOROLAC TROMETHAMINE 30 MG/ML (IVP) VIAL IV PUSH ONE (21:30)
[2017-08-25] MEDS ORDERED: predniSONE 50 MG TAB PO ONE (21:30)
[2017-08-25] MEDS ORDERED: predniSONE 20 MG TAB PO ONE (21:45)
== END 2017-08-25 22:13 | disposition home or self-care (01) ==
LOC: NEPD 18:03
DX: M54.42 Lumbago with sciatica, left side (principal); R10.9 Unspecified abdominal pain; R19.7 Diarrhea, unspecified; R11.0 Nausea; I10 Essential (primary) hypertension; J45.909 Unspecified asthma, uncomplicated; I50.9 Heart failure, unspecified; E78.00 Pure hypercholesterolemia, unspecified; E11.9 Type 2 diabetes mellitus without complications; N19 Unspecified kidney failure; Z79.84 Long term (current) use of oral hypoglycemic drugs; Z87.39 Personal history of other diseases of the musculoskeletal system and connective tissue
CPT/HCPCS: 72131; 74177; 80053; 81001; 85025; 85610; 85730; 96374; 96375; 99284; J1885; J2270; J7030; J7512; Q9967